=== PATIENT | male | born 1985 | race American Indian/Alaskan Native ===

== ENCOUNTER 2024-09-04 10:24 | Emergency (ER) | payer OTHER ==
[~2024-09-04] VITALS: Ht 165.1 cm; Wt 99.8 kg
[2024-09-04 10:24] VITALS: PULSE 83; RESP 20; TEMP 98.4
[2024-09-04] MEDS ORDERED: hydrALAZine 20MG/ML VIAL IV ONE (11:30)
[2024-09-04 11:41] VITALS: BP 189/116
[2024-09-04] MEDS ORDERED: PROCHLORPERAZINE 10MG/2ML INJ IV ONE (12:00)
[2024-09-04] MEDS ORDERED: 0.9%NACL 1000ML 1,000 ML IV ONE (12:00)
--- NOTE | 2024-09-04 12:04 | ERN ---
ED Note History of Present Illness Stated Complaint: BACK OF HEAD PAIN,SEVERE LEE Chief Complaint: Headache Dictation: The patient is a 39-year-old male with a history of hypertension presented to the emergency department with a primary complaint of occipital headaches that began 45 minutes prior. The onset of pain was sudden, characterized as a pressure-type headache that is non-radiating, with no identifiable exacerbating or alleviating factors. The patient reports associated nausea but denies experiencing vomiting, photophobia, any weakness, or neurological deficits. He has a history of intermittent headaches but does not recognize any specific triggers. The patient began antihypertensive medication two years ago but has not taken any medication for the past eight months. He has no history of stroke, myocardial infarction, or previous surgeries and denies the use of alcohol, caffeine, or intravenous drugs. Allergies: Coded Allergies: No Known Drug Allergies (Unverified Allergy, Unknown, 09/04/24) Past Medical History Past Medical History: Hypertension Surgical History: None Review of System Dictation REVIEW OF SYSTEMS CONSTITUTIONAL: Complains of occipital headaches, Denies fevers, chills, or night sweats. No unintentional weight loss reported. NEUROLOGICAL: Denies amaurosis fugax, motor weakness, sensory deficit, vertigo/spinning sensation, gait abnormalities, or tremors. ENT: No hearing loss, otalgia, otorrhea, rhinitis, rhinorrhea, hoarseness, or sore throat. CARDIOVASCULAR: Denies any exertional angina, dyspnea on exertion, orthopnea, paroxysmal nocturnal dyspnea, palpitations, life-threatening arrhythmias, claudication. PULMONARY: Denies any shortness of breath, cough, phlegm/sputum, hemoptysis, pleuritic chest pain. SLEEP: Denies morning headaches, daytime somnolence or napping. Denies difficulty falling asleep, staying asleep, waking from sleep. Denies knowledge of snoring. GASTROINTESTINAL: Denies any type of dysphagia to either liquids or solids. Denies nausea, vomiting, pyrosis, early satiety, abdominal pain, diarrhea, constipation, or changes in stool consistency or caliber. Denies coffee-ground emesis, hematemesis, hematochezia, or melanotic stools. GENITOURINARY: Denies frequency, urgency, nocturia, hematuria or incontinence (Storage/Irritative symptoms.) Low urinary stream, straining to void, urinary intermittency or hesitancy, splitting of the voiding stream, terminal dribbling. ENDOCRINOLOGIC: Denies polyuria, polydipsia, polyphagia or heat/cold intolerances. HEMATOLOGIC: Denies thrombophilia/previous clots, or coagulopathy/bleeding disorders. ONCOLOGIC: Denies personal history of malignancy. DERMATOLOGIC: Denies rashes or pruritus. PSYCHIATRIC: Denies any suicidal or homicidal ideation. Denies hallucinations. Initial Vital Sign VS Vital Signs Date Time Temp Pulse Resp B/P (MAP) Pulse Ox O2 Delivery O2 Flow Rate FiO2 09/04/24 10:24 98.4 83 20 172/100 97 Room Air 0 09/04/24 11:41 21 Physical Exam Dictation PHYSICAL EXAM GENERAL APPEARANCE: The patient is awake, alert, and oriented, in no acute cardiopulmonary distress. NEUROLOGICAL: Cranial nerves II-XII grossly intact. Motor is 5/5 in bilateral upper and lower extremities proximal to distal. No sensory deficits. HEENT: Face is symmetric. Pupils are equal and reactive. Extraocular movements are intact. NECK: Supple. No JVD. No thyromegaly. No submental, submandibular, pre- /postauricular, occipital or supraclavicular lymphadenopathy. CHEST: Normal chest expansion. No Telemetry. LUNGS: Absence of any rales, rhonchi or any wheezing. CARDIOVASCULAR: Regular. S1 and S2 normal. No appreciable rubs, murmurs or gallops. ABDOMEN: Soft, nontender, and nondistended. There is no rebound, voluntary guarding, or rigidity. : Deferred. No Frost. EXTREMITIES: Non-edematous and not cyanotic. No clubbing. Good capillary refill. SKIN: No skin breakdown. ED Course ED Course Orders Procedure Category Date Status Time Hydralazine 20mg Inj PHA 09/04/24 Complete (Apresoline 20mg In 11:30 0.9%Nacl 1000ml (Ns PHA 09/04/24 Complete 1000ml) 12:00 Prochlorperazine PHA 09/04/24 Complete 10mg/2ml Inj 12:00 Current Medications Medications (Trade) Dose Ordered Sig/Gerson Route PRN Reason Start Time Stop Time Status Last Admin Dose Admin Hydralazine HCl (APRESOLine 20MG INJ) 20 mg ONCE ONCE IV 09/04/24 11:30 09/04/24 11:39 DC Prochlorperazine Edisylate (Compazine 10mg/ 2ml Inj) 10 mg ONCE ONCE IV 09/04/24 12:00 09/04/24 12:01 DC Sodium Chloride 1,000 ml @ 0 mls/hr ONCE ONCE IV 09/04/24 12:00 09/04/24 12:01 DC Vital Signs Date Time Temp Pulse Resp B/P (MAP) Pulse Ox O2 Delivery O2 Flow Rate FiO2 09/04/24 11:41 189/116 Room Air* 0 21 09/04/24 10:24 98.4 83 20 172/100 97 Room Air 0 11:30 The patient was examined in ED triage room 1. He says while he was waiting in the emergency, he reported improvement in his headaches. Repeat blood pressure showed 189/111. He denies any facial drooping, weakness, neurological deficits for now. Since the patient has reported improvement in the symptoms, we will order basic labs including CBC, BMP and urinalysis. Due to known neurological deficits, we do not think the symptoms are secondary to stroke and the patient does not require any radiology investigations for now. Once lab results are back, we will evaluate if the patient requires an emergency treatment or inpatient hospitalization. We will closely monitor the patient's vitals. 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 I did not get a chance to talk to the patient as he left before I could communicate with him about the consequences of not getting the management at this time. The patient was eloped from the ER Medical Decision Making MDM MDM Differential diagnosis: Hypertensive crisis, Hypertensive emergency Rationale: Tests considered and ordered secondary to shared decision making include: Previous outside records reviewed: Old ER visits. Risk of complication and/or morbidity or mortality of patient management: None Medications-Per medication reconciliation Need for hospitalization: Patient does not meet criteria for hospitalization. Need for emergency major/minor surgery: No There are no social concerns with this patient. Prescription drug management Prescriptions will include symptomatic care Patient's prior external medical records from other ER visits were reviewed by me as indicated. Prior testing and results from previous visits were reviewed. Prior tests were taken into account with medical decision making and resource utilization, independent historian/historians were used to obtain complete medical history. I independently interpreted the test that were performed, results were reviewed by me and considered findings on radiology if ordered. DX & DISP Disposition: AMA Departure Impression: Primary Impression: Hypertensive crisis Additional Impression: Hypertensive emergency Condition: Stable I have reviewed, & agreed with my scribe's, documentation. I have reviewed the case, and I agree with, Diagnosis and Plan I have examined patient, & reviewed all documents, & agreed W/ the Diagnosis, and Plan OMI BANGURA MD Sep 04, 2024 12:04
== END 2024-09-04 13:07 | disposition left against medical advice (07) ==
LOC: EDH 10:24
DX: I16.1 Hypertensive emergency (principal); I10 Essential (primary) hypertension
CPT/HCPCS: 99281

== ENCOUNTER → 2024-09-18 | Outpatient (CLI) | payer OTHER ==
--- NOTE | 2024-09-18 14:43 | HMCIMG ---
MR BRAIN WO CON HISTORY: Headaches COMPARISON: None TECHNIQUE: MRI of the brain was performed utilizing multiple pulse sequences in axial, coronal and sagittal planes. Patient was not given contrast through intravenous route. FINDINGS: The ventricles and extraventricular CSF spaces are nondilated for patient's age. There is no midline shift, mass effect or herniation. No subacute hemorrhage is seen. No MR evidence of acute infarct is seen in the diffusion weighted images. Cerebellar tonsils are in normal position. No evidence of mucoperiosteal thickening is seen of the visualized paranasal sinuses. No MR evidence of a mass lesion is seen in this noncontrast study. IMPRESSION: 1. No MR evidence of acute infarct is seen in the diffusion weighted images.
== END | disposition home or self-care (01) ==
LOC: RAH 10:30
PROVIDERS: ATTEND Internal Medicine
DX: R51.9 Headache, unspecified (principal)
CPT/HCPCS: 70551